=== PATIENT | female | born 1940 | race Caucasian/White ===

== ENCOUNTER → 2016-12-17 | Outpatient (CLI) | payer OTHER ==
[~2016-12-17] MED LIST: AMITRIPTYLINE H10 M3 PO; CALCIUM 500 +1 EAC5 PO; EFFEXOR XR37.5 MG PO; FEMARA2.5 MG PO; NEURONTIN 300300 M1 PO; OMEPRAZOLE 20 M20 M1 PO; PERCOCET 10-321 EACH PO; SELENIMIN50 MCG PO; UNICOMPLEX M TA1 TA1 PO; VITAMIN D2000 UNIT PO
== END ==
LOC: CAT 11:58
PROVIDERS: Family Medicine
DX: K80.20 Calculus of gallbladder without cholecystitis without obstruction (principal); R91.1 Solitary pulmonary nodule; R05 Cough

== ENCOUNTER → 2017-03-31 | Outpatient (CLI) | payer OTHER | LOC: RAD 11:21 | DX: M47.892 Other spondylosis, cervical region (principal) ==

== ENCOUNTER → 2018-11-29 | Outpatient (CLI) | payer OTHER ==
[2018-11-29 11:47] LABS: CREATININE 1.2 mg/dL (0.6-1.0)
== END ==
LOC: CAT 10:39
PROVIDERS: Family Medicine
DX: J84.10 Pulmonary fibrosis, unspecified (principal); K57.30 Diverticulosis of large intestine without perforation or abscess without bleeding; R59.9 Enlarged lymph nodes, unspecified; M41.86 Other forms of scoliosis, lumbar region; M47.816 Spondylosis without myelopathy or radiculopathy, lumbar region

== ENCOUNTER → 2019-06-21 | Outpatient (CLI) | payer OTHER | LOC: CAT 12:13 | DX: K80.20 Calculus of gallbladder without cholecystitis without obstruction (principal); K76.89 Other specified diseases of liver; I70.0 Atherosclerosis of aorta; M47.814 Spondylosis without myelopathy or radiculopathy, thoracic region; K56.41 Fecal impaction; K57.30 Diverticulosis of large intestine without perforation or abscess without bleeding; Z87.19 Personal history of other diseases of the digestive system; Z90.49 Acquired absence of other specified parts of digestive tract ==

== ENCOUNTER → 2019-08-27 | Outpatient (CLI) | payer OTHER | LOC: NUC 09:26 | DX: M85.89 Other specified disorders of bone density and structure, multiple sites (principal); Z78.0 Asymptomatic menopausal state ==

== ENCOUNTER → 2020-10-20 | Outpatient (CLI) | payer OTHER ==
[2020-10-20 16:21] LABS: CREATININE 1.2 mg/dL (0.6-1.0)
== END ==
LOC: CAT 15:01 → LAB 15:01
PROVIDERS: ATTEND Nurse Practitioner
DX: K57.30 Diverticulosis of large intestine without perforation or abscess without bleeding (principal); K76.89 Other specified diseases of liver; N28.1 Cyst of kidney, acquired; N83.202 Unspecified ovarian cyst, left side; M47.814 Spondylosis without myelopathy or radiculopathy, thoracic region; K80.20 Calculus of gallbladder without cholecystitis without obstruction

== ENCOUNTER → 2021-02-17 | Outpatient (CLI) | payer OTHER | LOC: BC 12:46 | PROVIDERS: ATTEND Family Medicine | DX: Z12.31 Encounter for screening mammogram for malignant neoplasm of breast (principal); N64.89 Other specified disorders of breast ==

== ENCOUNTER → 2021-08-10 | Outpatient (CLI) | payer OTHER ==
[~2021-08-10] VITALS: Ht 152.4 cm; Wt 75.8 kg
[~2021-08-10] MED LIST changes: +ALLERGY-TIME4 MG PO; -EFFEXOR XR37.5 MG PO; +EFFEXOR XR75 MG PO; +MIRALAX119 GM PO
[2021-08-10 13:23] VITALS: BP 122/71
--- NOTE | 2021-08-10 13:52 | NUR ---
Pain Clinic Assessment: 1. History of Osteoarthritis: SPINE AND JOINTS History of Rheumatoid Arthritis: NONE 2. Height: 5 ft. 0 in. 152.4 cm. Weight: 167.0 lb. oz. 75.751 kg. Patient's BMI: 32.6 3. Vital Signs: BP: 122/71 Pulse: 101 Resp: 16 Temp: 02 Sat: 100 ECG Mon: 4. Pain Intensity: 6 TO 8 5. Fall Risk: Dizziness: N Needs help standing or walking: N Fallen in the last 3 months: N Fall risk comments: 6. Patient on Blood Thinner: None 7. History of Hypertension: Y 8. Opioid Therapy greater than 6 weeks: Y Opiate Contract Signed: 9. Risk Assessment Tool Provided: LOW-1 10. Functional Assessment Tool: 11. Recreational Drug Use: Never Drug Type: Tobacco Use: Former Smoker Tobacco Type: Amount or Packs/day: How Many Years: Alcohol Use: No Frequency: Quant:
== END ==
LOC: PAIN 10:22
PROVIDERS: ATTEND Anesthesiology Pain Medicine
DX: M47.22 Other spondylosis with radiculopathy, cervical region (principal); M48.02 Spinal stenosis, cervical region; M50.10 Cervical disc disorder with radiculopathy, unspecified cervical region; Z79.899 Other long term (current) drug therapy; Z88.8 Allergy status to other drugs, medicaments and biological substances